=== PATIENT | female | born 1985 | race American Indian/Alaskan Native ===

== ENCOUNTER 2018-03-07 20:25 | Emergency (ER) | payer OTHER ==
[~2018-03-07] VITALS: Ht 170.2 cm; Wt 79.5 kg
[2018-03-07 21:12] LABS: HEMATOCRIT 33.5 % (36.0-47.0); HEMOGLOBIN 10.4 g/dl (12.0-15.5); MEAN CORPUSCULAR HEMOGLOBIN 24.4 pg (27.0-33.0); MEAN CORPUSCULAR VOLUME 78.5 fl (80.0-96.0); PLATELET COUNT, AUTOMATED 270 10^3/uL (150-450); RED BLOOD COUNT 4.27 10^6/uL (4.00-5.40); WHITE BLOOD COUNT 6.3 10^3/uL (4.0-10.0)
[2018-03-07 21:32] LABS: HCG, SERUM QUALITATIVE NEGATIVE (NEGATIVE)
[2018-03-07 21:36] LABS: ACETAMINOPHEN LEVEL < 2.0 UG/ML (10.0-30.0); ALBUMIN 3.9 GM/DL (3.2-5.2); ALT/SGPT 22 U/L (12-78); AMPHETAMINES LEVEL URINE NEGATIVE (NEGATIVE); BARBITURATES URINE NEGATIVE (NEGATIVE); BENZODIAZEPINES URINE NEGATIVE (NEGATIVE); BILIRUBIN,DIRECT < 0.1 MG/DL (0.0-0.2); BILIRUBIN,TOTAL 0.2 MG/DL (0.2-1.0); BLOOD UREA NITROGEN 18 MG/DL (7-18); CALCIUM LEVEL 8.8 MG/DL (8.5-10.1); CANNABINOIDS URINE NEGATIVE (NEGATIVE); CARBON DIOXIDE LEVEL 23 MEQ/L (21-32); CHLORIDE LEVEL 108 MEQ/L (98-107); COCAINE METABOLITE URINE NEGATIVE (NEGATIVE); CREATININE FOR GFR 0.94 MG/DL (0.55-1.30); ETHYL ALCOHOL (ETHANOL) < 0.003 % (0.000-0.010); GLOMERULAR FILTRATION RATE > 60.0 (>60); GLUCOSE, FASTING 88 MG/DL (70-100); METHADONE URINE NEGATIVE (NEGATIVE); OPIATES URINE NEGATIVE (NEGATIVE); PHENCYCLIDINE URINE NEGATIVE (NEGATIVE); POTASSIUM SERUM 3.9 MEQ/L (3.5-5.1); SALICYLATE LEVEL < 1.7 MG/DL (5.0-30.0); SODIUM LEVEL 141 MEQ/L (136-145); TOTAL PROTEIN 7.7 GM/DL (6.4-8.2)
[2018-03-07 22:53] VITALS: BP 121/69
== END 2018-03-07 22:55 | disposition home or self-care (01) ==
LOC: M ED 20:25
DX: F41.1 Generalized anxiety disorder (principal)
CPT/HCPCS: 36415; 80048; 80076; 80307; 84443; 84703; 85027; 99284; G0480

== ENCOUNTER → 2018-11-29 | Outpatient (CLI) | payer OTHER ==
--- NOTE | 2018-12-04 15:44 | REP ---
BILATERAL MAMMOGRAM: HISTORY: Bilateral nipple discharge. Family history of breast cancer in maternal grandmother and paternal grandmother. [facility] lifetime risk of breast cancer 19.1%. MLO and CC views of both breasts performed. There are no prior studies for comparison. There is mild to moderate scattered fibroglandular tissue bilaterally with no evidence of mass or clustered microcalcifications. IMPRESSION: BIRADS 0: BI-RADS/ACR category 0 mammogram, Incomplete: Need additional imaging evaluation and/or prior mammograms for comparison. No mass or clustered microcalcifications seen in either breast on this baseline mammogram. For a patient with bilateral nipple discharge I would recommend patient return for retroareolar ultrasound bilaterally to evaluate for intraductal abnormality. Also consider MRI of the breasts given the bilateral discharge and strong family history with lifetime risk of breast cancer 19.1%. This mammogram was interpreted with the aid of an FDA-approved computer-aided detection system. The patient states he/she had a clinical breast exam in 11/2018. The patient letter being requested is M0. Electronically Signed by Car Carmona MD 12/05/2018 04:30 P
== END ==
LOC: M RAD 14:47
PROVIDERS: ATTEND Family Medicine
DX: N64.52 Nipple discharge (principal); Z80.3 Family history of malignant neoplasm of breast; R92.2 Inconclusive mammogram

== ENCOUNTER → 2018-12-12 | Outpatient (CLI) | payer OTHER ==
--- NOTE | 2018-12-12 11:47 | REP ---
BILATERAL BREAST ULTRASOUND: Bilateral breast ultrasound performed. Patient has a history of milky nipple discharge for 3 months. Correlation is made with the mammogram of 11/29/2018. Imaging of the retroareolar regions demonstrates mildly dilated ducts in both retroareolar areas. No cystic or solid mass is seen. IMPRESSION: ACR 2 benign. Mildly dilated ducts in the retroareolar regions bilaterally without evidence of cystic or solid mass. Again, in this patient with negative mammogram and ultrasound with history of nipple discharge, consideration should be made for further evaluation with MRI of the breasts, particularly given strong family history with a lifetime risk of breast cancer 19.1%. Electronically Signed by Car Carmona MD 12/12/2018 06:24 P
== END ==
LOC: M RAD 09:24
PROVIDERS: ATTEND Family Medicine
DX: N64.52 Nipple discharge (principal)

== ENCOUNTER 2019-05-06 13:21 | Emergency (ER) | payer OTHER ==
[~2019-05-06] VITALS: Ht 165.1 cm; Wt 83.5 kg
[2019-05-06] MEDS ORDERED: EFFE37.5 (13:31)
[2019-05-06] MEDS ORDERED: BUSP15TA47 (13:31)
[2019-05-06 14:18] LABS: BASO # 0.1 10^3/uL (0.0-0.2); BASO % 0.8 % (0.0-1.0); EOS # 0.2 10^3/uL (0.0-0.5); EOS % 2.9 % (0.0-3.0); HEMATOCRIT 35.6 % (36.0-47.0); LYMPH # 1.2 10^3/uL (1.5-5.0); LYMPH % 19.5 % (24.0-44.0); MEAN CORPUSCULAR HEMOGLOBIN 29.8 pg (27.0-33.0); MEAN CORPUSCULAR HGB CONC 33.7 g/dl (32.0-36.5); MEAN CORPUSCULAR VOLUME 88.3 fl (80.0-96.0); MONO # 0.4 10^3/uL (0.0-0.8); MONO % 6.6 % (0.0-5.0); NEUTROPHILS # 4.4 10^3/uL (1.5-8.5); PLATELET COUNT, AUTOMATED 257 10^3/uL (150-450); RED BLOOD COUNT 4.03 10^6/uL (4.00-5.40); WHITE BLOOD COUNT 6.2 10^3/uL (4.0-10.0)
[2019-05-06] MEDS ORDERED: NS 1,000 ML IV ONE (14:45)
[2019-05-06 14:53] LABS: ALBUMIN 3.7 GM/DL (3.2-5.2); ALT/SGPT 21 U/L (12-78); AMYLASE 54 U/L (25-115); BILIRUBIN,DIRECT 0.1 MG/DL (0.0-0.2); BILIRUBIN,TOTAL 0.3 MG/DL (0.2-1.0); BLOOD UREA NITROGEN 10 MG/DL (7-18); CALCIUM LEVEL 9.2 MG/DL (8.5-10.1); CARBON DIOXIDE LEVEL 22 MEQ/L (21-32); CHLORIDE LEVEL 107 MEQ/L (98-107); CREATININE FOR GFR 0.67 MG/DL (0.55-1.30); GLOMERULAR FILTRATION RATE > 60.0 (>60); GLUCOSE, FASTING 92 MG/DL (70-100); HCG, SERUM QUANTITATIVE 74727 MIU/ML; SODIUM LEVEL 137 MEQ/L (136-145); TOTAL PROTEIN 7.4 GM/DL (6.4-8.2)
--- NOTE | 2019-05-06 15:42 | REP ---
FIRST TRIMESTER ULTRASOUND: Real-time sonographic evaluation of the gravid uterus is performed. There is a single living intrauterine gestation. The estimated gestational age is 8 weeks 3 days based on a crown-rump length of 19 mm, EDC 12/13/2019. heart rate is 168 beats per minute. There is no subchorionic hemorrhage. Ovaries appear normal. Electronically Signed by Car Carmona MD 05/06/2019 06:00 P
[2019-05-06 17:26] VITALS: BP 126/65
== END 2019-05-06 17:28 | disposition home or self-care (01) ==
LOC: M ED 13:21
DX: O99.281 Endocrine, nutritional and metabolic diseases complicating pregnancy, first trimester (principal); E86.0 Dehydration; R10.30 Lower abdominal pain, unspecified; O99.341 Other mental disorders complicating pregnancy, first trimester; F41.9 Anxiety disorder, unspecified; F32.9 Major depressive disorder, single episode, unspecified; Z3A.09 9 weeks gestation of pregnancy

== ENCOUNTER 2019-11-06 17:02 | Outpatient (CLI) | payer OTHER ==
[~2019-11-06] VITALS: Ht 167.6 cm; Wt 101.4 kg
[~2019-11-06 17:02] MED LIST: BUSP15TA47; EFFE37.5
--- NOTE | 2019-11-07 08:45 | HPE ---
DATE OF ADMISSION: 11/06/2019 This lady is a 34-year-old 5, para 2, abortio 1, last menstrual period (LMP) 03/06/2019, estimated date of confinement (EDC) 12/11/2019 at 38-5/8 weeks of gestation with history of spontaneous rupture of membranes of 3 weeks' duration. Risks factors are she has depression, she has asthma. She only has actually two visits at the clinic, 15 and 18-week visits. She was in [place] from 20 weeks to 30 weeks, and she had a 32-week visit on October 20. PAST HISTORY: March 2008 at 41 weeks, spontaneous vaginal delivery of infant, 6 pounds. August 2011 at 40 weeks spontaneous vaginal delivery of , 8 pounds. March 2015 at 40 weeks, spontaneous vaginal delivery, 7-pound infant. She had a spontaneous in 2014. LABORATORY DATA: A positive, HIV negative, hepatitis B negative, RPR negative, rubella immune, Varicella immune. Pap normal. Urine negative. Gonorrhea and chlamydia are negative. One-our glucose was not done, and a 28-week glucose was not done or her 28-week labs. Blood pressure is 116/69, respirations are 16, pulse is 82, temperature is 98.2, respirations are 16. Patient was not willing to void for a urine test. On examination, no distress. She has a lot of vitiligo throughout her body. She had a category 1 strip. No contractions, no decelerations. Moderate variability. Sterile speculum examination: Vagina is clean and dry. Ferning was negative. Nitrazine was negative. No bacterial vaginosis (BV) and no yeast was noted. Cervix was closed and posterior. She has a lot of vaginal redundancy secondary to multiple deliveries. The ultrasound performed showed a transverse lie with the head on the maternal right. Limb motion was noted. Amniotic index (SAKSHI) is 8.86 in two quadrants, and there were spontaneous respirations noted. DIAGNOSIS: Not ruptured membranes, 38 and 5 weeks of gestation. She has an appointment with [facility] next week. She was encouraged to keep it. Patient was discharged undelivered. A 20-minute discussion. All questions answered. MTDD
== END 2019-11-06 19:00 | disposition home or self-care (01) ==
LOC: M LDO 17:02
PROVIDERS: ATTEND Obstetrics & Gynecology
DX: O26.893 Other specified pregnancy related conditions, third trimester (principal); Z3A.38 38 weeks gestation of pregnancy
CPT/HCPCS: 59025; 76815; G0378; G0463

== ENCOUNTER 2019-12-09 03:23 | Inpatient (IN) | payer OTHER ==
[2019-12-09] VITALS (24 sets, daily range): BP systolic 103–148; BP diastolic 52–86
[~2019-12-09] VITALS: Ht 167.6 cm; Wt 103.4 kg
[2019-12-09] MEDS ORDERED: FENTANYL 2MCG/ML ROPIVACAINE 0.2% IN 0.9% NACL 100ML IVBAG As Ordered ONE (05:28)
[2019-12-09 05:45] LABS: HEMATOCRIT 29.7 % (36.0-47.0); HEMOGLOBIN 9.4 g/dl (12.0-15.5); MEAN CORPUSCULAR HEMOGLOBIN 25.8 pg (27.0-33.0); MEAN CORPUSCULAR HGB CONC 31.6 g/dl (32.0-36.5); MEAN CORPUSCULAR VOLUME 81.4 fl (80.0-96.0); PLATELET COUNT, AUTOMATED 220 10^3/uL (150-450); RED BLOOD COUNT 3.65 10^6/uL (4.00-5.40); WHITE BLOOD COUNT 12.6 10^3/uL (4.0-10.0)
--- NOTE | 2019-12-09 05:56 | HPEPDOC ---
Obstetrical History & Physical General Date of Admission 12/09/2019 History of Present Illness Patient reports having irregular ctx's for last 24 hours with worsening in the past 4 hours to q5min. She reports having onset of leaking of clear fluid that started yesterday at 1000. She denies any gushes of fluid or soaking a pad. Denies any VB or DFM. Chief Complaint: Contractions, term Information Provided By: Patient Age: 34 : 5 Term: 3 Pre-term: 0 Abortions: 1 Livin Care Care: Good Care Dating Final EDC: Dec 11, 2019 Final EDC for Daily Update: Dec 11, 2019 Final EDC by: LMP, 1st trimester (US) EGA at Admission: 39 (+5) Antepartum Course Diagnos(e)s Mental disorders complicating Respiratory disorders complicating Height (inches): 66 Pre- weight (lbs.): 175 Admission Weight (lbs.): 228 Change in Weight (lbs.): 53 Past Medical History Past Obstetrical History : Past Obstetrical History: Multigravida ( - 3 with pelvis proven to 8lbs, 1 SAB) MANAGER RISK History: No pertinent history Past Medical History Medical History Asthma Depression Anxiety Oral HSV Surgical History: [place] teeth Family History Significant Family History: Unable to assess Social History Marital Status: Family situation: Spouse/partner home Psychosocial History: Anxiety, Depression * Smoker: non-smoker Alcohol: Denies Drugs: denies Abuse Violence Screening Have you been hit/kicked/slapp: No Imunizations Tdap status: current (21OCT2019) Influenza Status: current () Allergies Coded Allergies: No Known Allergies (Unverified , 11/06/19) Medications No Active Prescriptions or Reported Meds Physical Examination Physical Examination GENERAL: Alert and oriented times three. ABDOMEN: Gravid and non-tender to touch. FETUS: Is vertex (VTX) by sterile vaginal examination (SVE), fetus is vertex (VTX) by Zackary. CARDS: well-perfused RESP: no exaggerated respiratory effort appreciated EXTREMITIES: No edema. Vital Signs/I&O Vital Signs Date Time Temp Pulse Resp B/P (MAP) Pulse Ox O2 Delivery O2 Flow Rate FiO2 12/09/19 03:49 97.2 67 123/75 (91) Laboratory Data Urine Culture: No Growth Pertinent Laboratoy Data Blood Type: A+ RBC Antibody Screen: Negative HIV: Negative Hepatitis B: Negative Hepatitis C: Negative Rapid Plasma Reagin: Nonreactive Rubella: Immune Varicella: Immune Chlamydia/Gonorrhea: Negative Group B Streptococcus: Negative Cystic Fibrosis: Unknown Glucose Tolerance Test: 78 Anatomy Ultrasound Placenta Location: Posterior ( ) Vaginal Examination Dilation: 5 cm Effacement: 90% Station: -1 Cervical Consistency: Soft Cervical Position: Anterior Presentation: Cephalic presentation Assessment Heart Rate (FHR): 130 Variability: Moderate Accelerations: Positive Decelerations: None Tocometer Contractions: Yes Frequency: every 2-5 min. Multi-drug resistant Organism: No history of MDRO Assessment/Plan Assessment Eda is a 33yo at 39+5wks presenting for c/o ctx's and found to make cervical change in triage from 2/70/-2 to now 5/90/-1. Bedside u/s demonstrated posterior placenta with ASKSHI 5.6cm. Nitrazine negative. Membranes not palpated on exam. Concern of SROM at 1000 yesterday per patient report. GBS neg. EFW 3600g. Plan Admit and orient. Kier Hand and consent. Diet: clears as tolerated Group B Streptococcus (GBS) negative. Labs and intravenous (IV) per unit protocol. Counseled on Pitocin and augmentation of labor (IOL). Lactated Ringers (LR): Bolus 1000mL, then at 125mL/hr. Patient may have epidural if desired for pain control Anticipate normal spontaneous delivery (). C-S as appropriate. KALYANI ARECHIGA DO Dec 09, 2019 05:56
[2019-12-09] MEDS ORDERED: FENTANYL/ROPIVACAINE/NACL BAG 100 ML EPIDURAL SCH (06:20)
[2019-12-09] MEDS ORDERED: LACTATED RINGER'S 1000 ML IV PRN (06:20)
[2019-12-09] MEDS ORDERED: EPIDURAL/PCA KEYS XX PRN (06:20)
[2019-12-09] MEDS ORDERED: ONDANSETRON 4MG/2ML VIAL IV PRN (06:20)
[2019-12-09] MEDS ORDERED: diphenhydrAMINE 50MG/ML VIAL (J1200) IV PRN (06:20)
[2019-12-09] MEDS ORDERED: ePHEDrine SULFATE 25 MG/5 ML(5MG/ML) SYRINGE IV PRN (06:20)
[2019-12-09] MEDS ORDERED: EPIDURAL COMMENT XX SCH (06:20)
[2019-12-09] MEDS ORDERED: REFRIGERATOR IV KEYS XX PRN (06:20)
[2019-12-09] MEDS ORDERED: NALOXONE INJ 0.4MG/1ML VIAL (J2310 PER 1MG) IV PRN (06:20)
--- NOTE | 2019-12-09 08:12 | IPNPDOC ---
Obstetrical Progress Note Date of Service Dec 09, 2019 Subjective [place] of Care Note. Received report from Dr. Levin and assumed care of Eda, a 34yo at 39+5wks admitted this AM for labor and SROM. Pt recently received her epidural and very comfortable and sleeping. Objective O: VSS, afebrile, normotensive FHR 130s, moderate variability, + accels, intermittent variable decelerations and 1x late deceleration noted, all resolved spontaneously CTX by TOCO q 3-5 minutes VE deferred Vital Signs Date Time Temp Pulse Resp B/P (MAP) Pulse Ox O2 Delivery O2 Flow Rate FiO2 12/09/19 07:13 97.2 65 16 103/52 (69) Assessment Heart Rate Tracing: Category II Tocometer Contractions: Yes Frequency: regular Assessment and Plan Status: Reassuring Group B Streptococcus: Negative Anticipate: Vaginal Delivery Additional Comments A: Active labor at 39+5wks with SROM x22 hours, Category II FHT d/t decelerations, overall reassuring with accels and moderate variability.GBS Negative. P: CEFM x2 Continue expectant management Monitor for s/sx of chorio resuscitative interventions PRN Anticipate Consult with OB if indicated NOELLE KIMBLE CNM Dec 09, 2019 08:12
[2019-12-09] MEDS ORDERED: OXYTOCIN 30 UNITS IN 0.9% NaCl 500ML IV BAG (J2590) As Ordered ONE (08:49)
[2019-12-09] MEDS: PRENATAL VITAMINS CHEWABLE TABLET PO SCH (09:00)
[2019-12-09] MEDS ORDERED: OXYTOCIN DRIP 30 UNITS in IV 1 EA IV SCH ×2 (11:36→11:45)
[2019-12-09] MEDS ORDERED: DIBUCAINE 1% OINTMENT 30GM TOP PRN (11:45)
[2019-12-09] MEDS ORDERED: ACETAMINOPHEN 500 MG TAB PO PRN (11:45)
[2019-12-09] MEDS ORDERED: ANUSOL HC CREAM 30GM TOP PRN (11:45)
[2019-12-09] MEDS ORDERED: DOCUSATE SODIUM 100 MG CAP PO PRN (11:45)
[2019-12-09] MEDS ORDERED: ACETAMINOPHEN TAB 650MG DOSE (2X325MG) PO PRN (11:45)
--- NOTE | 2019-12-09 11:58 | DNPDOC ---
[facility] Delivery Note Delivery Note DATE OF DELIVERY: 09 December 2019 at 1113 PREDELIVERY DIAGNOSIS: 39+5 weeks' gestation and labor, SROM >24 hours. POST DELIVERY DIAGNOSIS: Delivered. PROCEDURE: ORGAN GRINDER: EMILY Kimble ANESTHESIA: Epidural ESTIMATED BLOOD LOSS: 150 mL. FINDINGS: 7 pound 5 ounce (3330g) Male , Score 8/9. DELIVERY SUMMARY: Eda is a 34yo G5 now P4014 s/p uncomplicated . She was complete at 0850 with mild pressure, but her contractions began to space out. Pitocin augmentation was started at 0946 and titrated per protocol for an adequate labor pattern. Pt then continued to push to deliver a viable male infant over a protected perineum. head delivered LOP and restituted to LOT. Right anterior shoulder delivered with ease, followed by left posterior shoulder, then remainder of infant delivered to maternal abdomen where he was dried and stimulated, strong lusty cry. Once cord stopped pulsating, clamped x2 and cut by FOB; 3VC. Placenta delivered spontaneously and appeared intact; fundus firm, EBL 150mL; pitocin bolus started upon delivery of placenta. Upon inspection of vagina, perineum, and cervix, only minor abrasions with good hemostasis were noted periurethral. Family bonding well, anticipate uncomplicated PP course. NOELLE KIMBLE CNM Dec 09, 2019 11:58
[2019-12-09] MEDS: IBUPROFEN 800 MG TAB PO PRN (15:40)
[2019-12-10] MEDS: IBUPROFEN 600MG TAB PO PRN (00:56)
[2019-12-10 05:30] VITALS: BP 118/71
--- NOTE | 2019-12-10 06:57 | IPNPDOC ---
Progress Note Date of Service: Dec 10, 2019 Day#: 1 Progress Note SUBJECT: Ms. Olivia Maldonado is a 34yo PPD1 s/p uncomplicated at [facility]. She has been ambulating, voiding spontaneously without issue and tolerating regular diet. Breast feeding without issue. Reports lochia is less than a normal period]. Patient is ambulating well. Denies any pain. Voiding and stooling without difficulty. OBJECTIVE: VITAL SIGNS: Within normal limits, afebrile. Alert and oriented times three. Breath sounds clear to auscultation. Heart rate: Regular rate and rhythm, no murmurs, rubs or gallops. Abdomen: Fundus firm at U-2. Soft, NTTP. Minimal lochia. ASSESSMENT: Ms. Olivia Maldonado is a 34yo PPD1 s/p uncomplicated at term. Vitals within normal limits, afebrile, hemodynamically stable with no evidence of infection. PLAN: 1. Discharge to home today. 2. Tylenol and Motrin for pain. 3. Encourage breast feeding and ambulation. 4. Desires depo provera before discharge for control 5. Routine PP visit in 6 weeks in clinic. 6. Discussed return precautions at length. VS, I&O, 24H, Fishbone Vital Signs/I&O Vital Signs Date Time Temp Pulse Resp B/P (MAP) Pulse Ox O2 Delivery O2 Flow Rate FiO2 12/10/19 05:30 98.9 62 17 118/71 (87) 99 Room Air I&O- Last 24 Hours up to 6 AM 12/10/19 06:00 Intake Total 2529.6 ml Output Total 1650 ml Balance 879.6 ml XIOMARA MONCADA DO Dec 10, 2019 06:57
[2019-12-10] MEDS ORDERED: medroxyPROGESTERone ACET IM SUSP 150 MG/ML VIAL (J1050) IM SCH (07:00)
[2019-12-10] MEDS: PRENATAL VITAMINS CHEWABLE TABLET PO SCH (09:36)
[2019-12-10] MEDS: IBUPROFEN 800 MG TAB PO PRN (10:58)
[2019-12-10 18:00] VITALS: BP 146/80
[2019-12-11] MEDS: IBUPROFEN 800 MG TAB PO PRN (05:08)
[2019-12-11 05:11] VITALS: BP 114/82
[2019-12-11] MEDS ORDERED: DOCU100C16 PO (06:44)
[2019-12-11] MEDS ORDERED: DIBU10OI TOP (06:44)
[2019-12-11] MEDS ORDERED: IBUP80TA PO (06:44)
[2019-12-11] MEDS: PRENATAL VITAMINS CHEWABLE TABLET PO SCH (10:32)
[2019-12-11] MEDS: IBUPROFEN 600MG TAB PO PRN (15:25)
--- NOTE | 2019-12-17 09:20 | DS ---
DATE OF ADMISSION: 12/09/2019 DATE OF DISCHARGE: 12/11/2019 This is a 34-year-old 5, now para 4, admitted at 39 and 5 weeks of gestation in spontaneous labor. Had a spontaneous vaginal delivery with epidural in place, live- male , 7 pounds 5 ounces, 3330 grams, scores of 8 and 9 at one and five minutes, respectively. She suffers from depression and anxiety, which is controlled. Her discharge blood pressure is 114/82, respirations are 18, pulse 73, temperature is 97.7. Her admitting hemoglobin 9.4, hematocrit 29, and platelets were 220. Patient was interested in Depo- Provera for control, and it will be administered prior to discharge. The rest of the examination unremarkable, normocephalic, atraumatic. Neck: Full range of motion. Pupils equal and reactive to light. Distal pulses are symmetric. No evidence of deep venous thrombosis (DVT), pulmonary embolism (PE), or superficial phlebitis. Chest is clear bilaterally to bases. No wheezes or rhonchi. No costovertebral angle (CVA) tenderness. Abdomen soft. Four-quadrant bowel sounds are noted. She has no rashes, lesions or pruritus. No arthralgia, myalgia. No complaint of joint pain. No complaints of cough, wheeze, shortness of breath, or dyspnea on exertion. No nausea, vomiting, diarrhea, or constipation. No urgency or frequency. In summary, we have term gestation, delivered a live- male . Plans are to shredder picker medications at [place]. A 6-week checkup at [facility]. All questions were answered. A 20-minute discussion. We await discharge from the process helper. ARYAN
--- NOTE | 2019-12-19 09:57 | IPN ---
DATE: 12/10/2019 This patient requested circumcision of her male . After discussing the risks and benefits of circumcision, the medical and non-medical indications, the penile block and aftercare, she expressed understanding of penile block, aftercare, and bleeding, signed the consent form, all questions were answered, 20 minute discussion. We await the clearance by the clock and watch hands mounter. ARYAN
== END 2019-12-11 17:55 | disposition home or self-care (01) | DRG 807 ==
LOC: M LDO 03:23 → M LDI 05:22 → M OBS 14:30
PROVIDERS: ATTEND Registered Nurse Maternal Newborn
PROC: 10E0XZZ Delivery of Products of Conception, External Approach (ICD-10-PCS; principal; 2019-12-09)
DX: O80 Encounter for full-term uncomplicated delivery (principal); Z37.0 Single live birth; Z3A.39 39 weeks gestation of pregnancy